=== PATIENT | female | born 1990 | race Caucasian/White ===

== ENCOUNTER 2021-02-22 01:55 | Emergency (ER) | payer OTHER ==
[2021-02-22 03:09] VITALS: BP 120/80; PULSE 95; TEMP 98.3; BMI 26.1
[2021-02-22] MEDS: ALBUTEROL SO4 2.5/IPRATROPIUM 0.5 INH SOL 3 ML VIAL.NEB. NEB SCH ×2 (03:57→04:15)
== END 2021-02-22 05:12 | disposition home or self-care (01) ==
LOC: JER 01:55
PROC: 3E0F7GC Introduction of Other Therapeutic Substance into Respiratory Tract, Via Natural or Artificial Opening (ICD-10-PCS; principal; 2021-02-22)
DX: J45.909 Unspecified asthma, uncomplicated (principal)
CPT/HCPCS: 99284-25; C9803; U0003; U0005

== ENCOUNTER 2021-10-14 08:11 | Emergency (ER) | payer OTHER ==
[2021-10-14 08:20] VITALS: BP 138/85; PULSE 66; TEMP 98.1; BMI 27.4
[2021-10-14] MEDS ORDERED: SODIUM CHLORIDE 1,000 ML IV STA (09:19)
[2021-10-14] MEDS ORDERED: ONDANSETRON 4 MG TABLET PO ONE (09:35)
[2021-10-14] MEDS ORDERED: ONDANSETRON *ODT* 4 MG TABLET ONE (09:48)
== END 2021-10-14 11:40 | disposition home or self-care (01) ==
LOC: JER 08:11
DX: K52.9 Noninfective gastroenteritis and colitis, unspecified (principal)
CPT/HCPCS: 93005; 93010; 99284-25

== ENCOUNTER 2023-08-30 16:55 | Emergency (ER) | payer SELFPAY ==
[2023-08-30 17:01] VITALS: BP 121/89; PULSE 75; RESP 18; TEMP 98.2; BMI 26.5
[2023-08-30] MEDS ORDERED: FAMOTIDINE 20 MG TABLET ONE (18:35)
[2023-08-30] MEDS ORDERED: ALBUTEROL SO4 2.5/IPRATROPIUM 0.5 INH SOL 3 ML VIAL.NEB. NEB ONE (18:35)
[2023-08-30] MEDS ORDERED: MAG HYDROX/AL HYDROX/SIMETH 30 ML UNIT-DOSE CUP ONE (18:36)
[2023-08-30] MEDS: FAMOTIDINE 10 MG TABLET PO ONE (18:45)
[2023-08-30] MEDS: ALBUTEROL SO4 2.5/IPRATROPIUM 0.5 INH SOL 3 ML VIAL.NEB. NEB SCH (18:45)
[2023-08-30] MEDS: MAG HYDROX/AL HYDROX/SIMETH 30 ML UNIT-DOSE CUP PO ONE (18:45)
== END 2023-08-30 20:16 | disposition home or self-care (01) ==
LOC: JER 16:55
PROC: 3E0F7GC Introduction of Other Therapeutic Substance into Respiratory Tract, Via Natural or Artificial Opening (ICD-10-PCS; principal; 2023-08-30)
DX: R10.13 Epigastric pain (principal); R06.00 Dyspnea, unspecified; R09.81 Nasal congestion; R09.82 Postnasal drip
CPT/HCPCS: 71046-TC-FY; 93005; 93010; 99284-25

== ENCOUNTER 2023-09-01 23:30 | Emergency (ER) | payer SELFPAY ==
[2023-09-01 23:36] VITALS: BP 132/90; PULSE 76; RESP 20; TEMP 97.8; BMI 26.5
[2023-09-02] MEDS ORDERED: LIDOCAINE 4% PATCH TP ONE (00:22)
[2023-09-02] MEDS ORDERED: ACETAMINOPHEN 500 MG TABLET (FP) ONE (00:23)
[2023-09-02] MEDS: ACETAMINOPHEN 500 MG TABLET (FP) PO ONE (00:28)
[2023-09-02] MEDS: LIDOCAINE 5% TOPICAL PATCH TP ONE (00:29)
[2023-09-02] MEDS ORDERED: METHOCARBAMOL 500 MG TABLET ONE (01:28)
[2023-09-02 01:46] LABS: HCG,QUALITATIVE URINE Negative
[2023-09-02] MEDS: METHOCARBAMOL 750 MG TABLET PO ONE (01:48)
[2023-09-02] MEDS ORDERED: KETOROLAC TROMETHAMINE 30 MG/1 ML VIAL ONE (02:10)
[2023-09-02 02:12] LABS: URINE APPEARANCE CLOUDY; URINE BILIRUBIN NEGATIVE (NEGATIVE); URINE COLOR DK YELLOW; URINE GLUCOSE (UA) NEGATIVE (NEGATIVE); URINE KETONE 2+ (NEGATIVE); URINE LEUK ESTERASE NEGATIVE (NEGATIVE); URINE NITRITE NEGATIVE (NEGATIVE); URINE PROTEIN TRACE (NEGATIVE)
[2023-09-02] MEDS: KETOROLAC TROMETHAMINE 30 MG/1 ML VIAL IM ONE (02:17)
[2023-09-02] MEDS ORDERED: LIDOCAINE PATCH REMOVAL MC SCH (22:00)
== END 2023-09-02 03:07 | disposition home or self-care (01) ==
LOC: JER 23:30
PROC: 3E023GC Introduction of Other Therapeutic Substance into Muscle, Percutaneous Approach (ICD-10-PCS; principal; 2023-09-02)
DX: M54.6 Pain in thoracic spine (principal); R10.9 Unspecified abdominal pain; X50.0XXA Overexertion from strenuous movement or load, initial encounter
CPT/HCPCS: 81003; 84703; 99284-25

== ENCOUNTER 2023-09-05 15:36 | Emergency (ER) | payer SELFPAY ==
[2023-09-05 15:55] VITALS: RESP 18; BMI 26.5
[2023-09-05] MEDS ORDERED: ACETAMINOPHEN INJECTION 100 ML IVPB ONE (16:49)
[2023-09-05] MEDS ORDERED: MAG HYDROX/AL HYDROX/SIMETH 30 ML UNIT-DOSE CUP ONE (16:49)
[2023-09-05] MEDS ORDERED: ONDANSETRON 4 MG/2 ML VIAL ONE (16:49)
[2023-09-05] MEDS ORDERED: FAMOTIDINE 10 MG/ML VIAL IVPB ONE (16:50)
[2023-09-05] MEDS: LACTATED RINGERS SOLUTION 1000 ML INFUS.BAG IV ONE (17:06)
[2023-09-05] MEDS: MAG HYDROX/AL HYDROX/SIMETH 30 ML UNIT-DOSE CUP PO ONE (17:07)
[2023-09-05] MEDS: FAMOTIDINE 20 MG/50 ML IVPB 20 MG/50 ML MG IVPB ONE (17:07)
[2023-09-05] MEDS: ONDANSETRON 4 MG/2 ML VIAL IVPUSH ONE (17:07)
[2023-09-05] MEDS: ACETAMINOPHEN 1000 MG/100 ML BAG IVPB ONE (17:07)
[2023-09-05 17:16] LABS: BASO % 0.8 % (0-2.0); EOS % 0.8 % (0-4.5); HEMATOCRIT 41.6 % (32.4-45.2); LYMPH % 17.7 % (8-40); MCH 28.9 pg (25.7-33.7); MCHC 33.7 g/dl (32.0-36.0); MEAN CELL VOLUME 85.9 fl (80-96); MEAN PLT VOLUME 8.8 fl (7.5-11.1); MONO % 5.9 % (3.8-10.2); NEUT % 74.8 % (42.8-82.8); PLATELET COUNT 349 10^3/uL (134-434); RBC 4.85 M/mm3 (3.60-5.2); RDW 13.7 % (11.6-15.6); WHITE BLOOD COUNT 10.9 K/mm3 (4.0-10.0)
[2023-09-05 17:34] LABS: POTASSIUM 3.8 mmol/L (3.5-5.1)
[2023-09-05 17:36] LABS: CALCIUM 10.4 mg/dL (8.5-10.1)
[2023-09-05 17:37] LABS: ALBUMIN 4.6 g/dl (3.4-5.0); MAGNESIUM 2.2 mg/dL (1.8-2.4)
[2023-09-05 17:40] LABS: CREATININE 0.7 mg/dL (0.55-1.3)
[2023-09-05 17:41] LABS: BILIRUBIN,TOTAL 0.6 mg/dL (0.2-1)
[2023-09-05] MEDS ORDERED: KETOROLAC TROMETHAMINE 15 MG/ML VIAL ONE (17:43)
[2023-09-05] MEDS: KETOROLAC TROMETHAMINE 15 MG/ML VIAL IVPUSH ONE (17:48)
[2023-09-05 18:11] LABS: EPI CELLS 13 /uL (0-25.1); HYALINE CASTS 2 /uL (0-3.1); PH,URINE 5.5 (5.0-8.0); URINE APPEARANCE CLOUDY; URINE BACTERIA 64 /uL (0-1359); URINE BILIRUBIN NEGATIVE (NEGATIVE); URINE COLOR YELLOW; URINE GLUCOSE (UA) NEGATIVE (NEGATIVE); URINE KETONE 3+ (NEGATIVE); URINE LEUK ESTERASE NEGATIVE (NEGATIVE); URINE NITRITE NEGATIVE (NEGATIVE); URINE PROTEIN TRACE (NEGATIVE); URINE RBC 233 /uL (0-23.9); URINE WBC 39 /uL (0-25.8)
[2023-09-05 21:41] VITALS: BP 110/74; PULSE 68; TEMP 97.8
[2023-09-05] MEDS ORDERED: FAMOTIDINE 20 MG TABLET ONE (22:16)
[2023-09-05] MEDS: PANTOPRAZOLE 20 MG TABLET PO ONE (22:20)
== END 2023-09-05 22:21 | disposition home or self-care (01) ==
LOC: JER 15:36
PROC: 3E033GC Introduction of Other Therapeutic Substance into Peripheral Vein, Percutaneous Approach (ICD-10-PCS; principal; 2023-09-05)
PROC: 3E033GC Introduction of Other Therapeutic Substance into Peripheral Vein, Percutaneous Approach (ICD-10-PCS; 2023-09-05)
PROC: 3E033NZ Introduction of Analgesics, Hypnotics, Sedatives into Peripheral Vein, Percutaneous Approach (ICD-10-PCS; 2023-09-05)
PROC: 3E0333Z Introduction of Anti-inflammatory into Peripheral Vein, Percutaneous Approach (ICD-10-PCS; 2023-09-05)
DX: R10.12 Left upper quadrant pain (principal); K52.9 Noninfective gastroenteritis and colitis, unspecified; R10.13 Epigastric pain
CPT/HCPCS: 36415; 72132-TC; 74177-TC; 76830-TC; 80053; 81003; 83690; 83735; 84703; 85025; 87086; 93005; 93010; 99285-25; J0131